=== PATIENT | male | born 1970 | race Caucasian/White ===

== ENCOUNTER 2024-07-21 16:12 | Emergency (ER) | payer BC ==
[2024-07-21] MEDS: Sulfamethoxazole/Trimethoprim 800-160 MG Tab PO ONE (18:51)
[2024-07-21] MEDS: Cephalexin 500 MG Cap PO ONE (18:51)
== END 2024-07-21 18:54 | disposition home or self-care (01) ==
LOC: MW.ED 16:12
DX: L03.116 Cellulitis of left lower limb (principal); I11.0 Hypertensive heart disease with heart failure; I50.9 Heart failure, unspecified; E10.9 Type 1 diabetes mellitus without complications; F17.210 Nicotine dependence, cigarettes, uncomplicated; Z88.8 Allergy status to other drugs, medicaments and biological substances
CPT/HCPCS: 82947; 99283; A9270